=== PATIENT | female | born 1955 | race Caucasian/White ===

== ENCOUNTER 2016-06-15 08:58 | Emergency (ER) | payer OTHER ==
--- NOTE | 2016-06-15 09:48 | ERRECORD ---
[facility] EMERGENCY RECORD HPI RASH (: SHAN) CHIEF COMPLAINT: Patient presents for evaluation of rash, Patient presents for evaluation of present for about six weeks. HISTORIAN: History provided by patient. LOCATION: right groin. QUALITY: Rash described as red. SEVERITY: Maximum severity of symptoms moderate, Currently symptoms are moderate. TIME COURSE: Gradual onset of symptoms. ASSOCIATED WITH: No associated symptoms. EXACERBATED BY: Patient's condition exacerbated by nothing. RELIEVED BY: Patient's condition relieved by nothing. ROS (: SHAN) CONSTITUTIONAL: Negative constitutional review of systems. EYES: Negative eye review of systems. ENT: Negative ears, nose, throat review of systems. CARDIOVASCULAR: Negative cardiovascular review of systems. RESPIRATORY: Negative respiratory review of systems. GI: Negative gastrointestinal review of systems. GENITOURINARY FEMALE: Negative genitourinary review of systems. MUSCULOSKELETAL: Negative musculoskeletal review of systems. SKIN: Negative skin review of systems. NEUROLOGIC: Negative neurologic review of systems. ENDOCRINE: Negative endocrine review of systems. NOTES: All systems reviewed, negative except as described above. PAST MEDICAL HISTORY (: [facility]) MEDICAL HISTORY: Notes: c/o chronic rash to between legs, Flu vaccine up to date, Past medical history includes history of hypertension, Patient is compliant, Flu vaccine up to date, Tetanus not up to date, Past medical history includes gastrointestinal disease, gastroesophageal reflux disease, Past medical history includes history of hyperlipidemia, high cholesterol, currently being treated, Past medical history includes history of hypertension, Past medical history includes history of malignancy, primary site cervical, treated with surgery. FEMALE SURGICAL HISTORY: removal of breast sx, Surgical history of hysterectomy. PSYCHIATRIC HISTORY: Psychiatric history includes, anxiety, bipolar disorder, manic depression. SOCIAL HISTORY: Patient denies alcohol use, Patient currently uses tobacco, smokes cigarettes, Patient smokes 1 pack per day, Patient denies alcohol use, Patient denies drug use, Patient currently uses tobacco, smokes cigarettes, daily, patient has smoked for one year. KNOWN ALLERGIES penicillin G sodium: Reaction: Anaphylaxis streptomycin &a-1R&a+25V*p+0X*[id number]*c202B*c15G*c2P*p-0X&a-25V&a+1R Name: Wildorado Tyree D : 1955 F60 MedRec: [id number] AcctNum: [id number] Prepared: Kailey Jun 15, 2016 09:58 by Interface Page 1 of 3 pMD [facility] EMERGENCY RECORD CURRENT MEDICATIONS (09:16 [facility]) Abilify: TABLET : Strength - 5 mg : ORAL Patient Dose: 1 tab(s) Oral once a day. Paxil: TABLET : Strength - 10 mg : ORAL Patient Dose: 1 tab(s) Oral once a day. Wellbutrin SR: TABLET, EXTENDED RELEASE : Strength - 150 mg : ORAL Patient Dose: 1 tab(s) Oral once a day. Diovan: CAPSULE : Strength - 80 mg : ORAL Patient Dose: 1 tab(s) Oral once a day. Protonix: TABLET, DELAYED RELEASE (ENTERIC COATED) : Strength - 40 mg : ORAL Patient Dose: 1 tab(s) Oral once a day. simvastatin: TABLET : Strength - 40 mg : ORAL Patient Dose: 1 tab(s) Oral once a day. hydrOXYzine HCl: TABLET : Strength - 10 mg : ORAL Patient Dose: unk mg Oral 3 times a day. VITAL SIGNS (09:12 [facility]) VITAL SIGNS: BP: 163/80, Pulse: 83, Resp: 20, Temp: 97.1 (Oral), Pain: 0, O2 sat: 95 on Room Air, Time: 06/15/2016 09:12. PHYSICAL EXAM (09:26 [facility]) CONSTITUTIONAL: Patient afebrile, Pulse normal, Blood pressure normal, Respiratory rate normal, Patient appears non toxic, Patient appears pain free, Patient alert and oriented to person, place and time. HEAD: Head exam included findings of head atraumatic, normocephalic. EYES: Eye exam normal, Eye exam included findings of eyelids normal to inspection, Pupils equally round and reactive to light, Extraocular muscles intact. ENT: ENT exam normal, Pharynx exam normal, Uvula exam normal, Tonsil exam normal. NECK: Neck exam normal, Neck exam included findings of normal range of motion, Trachea midline. RESPIRATORY CHEST: Respiratory and chest exam normal, Chest exam included findings of chest movement symmetrical, Chest expansion equal, Percussion normal. CARDIOVASCULAR: Cardiovascular assessment normal, Cardiovascular exam included findings of heart rate regular rate and rhythm, Heart sounds normal. ABDOMEN FEMALE: Abdominal exam normal, Abdominal exam included findings of abdomen nontender, Bowel sounds normal. BACK: Back exam normal. &a-1R&a+25V*p+0X*[id number]*c202B*c15G*c2P*p-0X&a-25V&a+1R Name: Tyree Garcia : 1955 F60 MedRec: [id number] AcctNum: [id number] Prepared: Kailey Jun 15, 2016 09:58 by Interface Page 2 of 3 pMD [facility] EMERGENCY RECORD UPPER EXTREMITY: Upper extremity exam normal, Upper extremity exam included findings of inspection normal, Range of motion normal. LOWER EXTREMITY: Lower extremity exam normal, Lower extremity exam included findings of inspection normal, Range of motion normal. NEURO: Neuro exam normal. SKIN: Rash present, right groin with erythematous rash; large, diffuse redness, some satellite lesions at edges. PSYCHIATRIC: Psychiatric exam normal, Psychiatric exam included findings of patient oriented to person place and time, Normal affect, Judgment normal, Insight normal. PROBLEM LIST No recorded problems DIAGNOSIS (09:39 SHAN) FINAL: PRIMARY: faina intertrigo. PRESCRIPTION Nizoral oral: TABLET : 200 mg : ORAL : Quantity: 1 Unit: tab(s) Route: ORAL Schedule: once a day Dispense: 14 May substitute. Refills: No Refills POTENTIAL CONTRAINDICATED INTERACTION: simvastatin Override Rationale: Benefits outweigh risks. (09:34 SHAN) NOTES: No Refills. (09:34 SHAN) tolnaftate topical: POWDER (GRAM) : 1 % : TOPICAL : Quantity: 1 Unit: elizabeth Route: TOPICAL Schedule: 4 times a day Dispense: 1 Unit: units May substitute. Refills: No Refills . (09:36 SHAN) NOTES: dispense one bottle or can; refill times 2 No Refills. (09:36 STEFANIE) DISPOSITION PATIENT: Disposition Type: Discharge, Disposition: *Discharge Home. (09:39 SHAN) Patient left the department. (09:52 [facility]) Vences: HAYDEN=Raquel Alcantara=MD Cage Stanley &a-1R&a+25V*p+0X*[id number]*c202B*c15G*c2P*p-0X&a-25V&a+1R Name: Tyree Garcia Chastity : 1955 F60 MedRec: [id number] AcctNum: [id number] Prepared: Kailey Jun 15, 2016 09:58 by Interface Page 3 of 3 pMD MTDD
--- NOTE | 2016-06-15 09:54 | PICIS ---
[facility] EMERGENCY RECORD TRIAGE (SunJun 15, 2016 09:15 IHAC) PATIENT: NAME: Tyree Garcia, AGE: 60, GENDER: female, : Sun1955, TIME OF GREET: SunJun 15, 2016 08:59, PREFERRED LANGUAGE: Frisian, ETHNICITY: Not or , ECODE BILLING MAP: [facility], SSN: [id number], Zip Code: [address], KG WEIGHT: 120.20, PHONE: , , , PERSON ID: [id number], PCP: Julio MAO LUKE. (SunJun 15, 2016 09:15 IHAC) COMPLAINT: RASH. (SunJun 15, 2016 09:15 IHAC) ADMISSION: URGENCY: 4 Non Urgent, ADMISSION SOURCE: Home, TRANSPORT: CAR, BED: ER -05. (SunJun 15, 2016 09:15 IHAC) ASSESSMENT: Assessment: RASH, Symptoms began 5 wks ago. (09:19 IHAC) SIRS SCORING: Heart Rate 55-109 (0), Temp range 96.8-101.1 (0), respiratory rate 12-24 (0). (09:19 IHAC) PROVIDERS: TRIAGE NURSE: Raquel Alcantara. (SunJun 15, 2016 09:15 IHAC) VITAL SIGNS: BP 163/80, Pulse 83, Resp 20, Temp 97.1, (Oral), Pain 0, O2 Sat 95, on Room Air, Time 06/15/2016 09:12. (09:12 IHAC) PREVIOUS VISIT ALLERGIES: penicillin G sodium, streptomycin. (SunJun 15, 2016 09:15 IHAC) penicillin G sodium, streptomycin. (09:19 I[facility]) KNOWN ALLERGIES penicillin G sodium: Reaction: Anaphylaxis streptomycin CURRENT MEDICATIONS (09:16 [facility]) Abilify: TABLET : Strength - 5 mg : ORAL Patient Dose: 1 tab(s) Oral once a day. Paxil: TABLET : Strength - 10 mg : ORAL Patient Dose: 1 tab(s) Oral once a day. Wellbutrin SR: TABLET, EXTENDED RELEASE : Strength - 150 mg : ORAL Patient Dose: 1 tab(s) Oral once a day. Diovan: CAPSULE : Strength - 80 mg : ORAL Patient Dose: 1 tab(s) Oral once a day. Protonix: TABLET, DELAYED RELEASE (ENTERIC COATED) : Strength - 40 mg : ORAL Patient Dose: 1 tab(s) Oral once a day. simvastatin: TABLET : Strength - 40 mg : ORAL Patient Dose: 1 tab(s) Oral once a day. hydrOXYzine HCl: TABLET : Strength - 10 mg : ORAL Patient Dose: unk mg Oral 3 times a day. &a-1R&a+25V*p+0X*f4039U*c202B*c15G*c2P*p-0X&a-25V&a+1R Name: Tyree Garcia : 1955 F60 MedRec: [id number] AcctNum: [id number] Prepared: [facility] Jun 15, 2016 10:04 by Interface Page 1 of 5 pMD [facility] EMERGENCY RECORD VITAL SIGNS (09:12 I[facility]) VITAL SIGNS: BP: 163/80, Pulse: 83, Resp: 20, Temp: 97.1 (Oral), Pain: 0, O2 sat: 95 on Room Air, Time: 06/15/2016 09:12. NURSING ASSESSMENT: SKIN (09:40 IHAC) CONSTITUTIONAL: Complex assessment performed, Patient arrives ambulatory, Gait steady, History obtained from patient, Patient appears comfortable, Patient cooperative, Patient alert, Oriented to person, place and time, Skin warm, Skin dry, Skin normal in color, Mucous membranes pink, Mucous membranes moist, Patient is well-groomed, Patient complains of RASH TO RIGHT SIDE OF LOW ABD.FOLD AND. PAIN: burning pain, constant, REPORTS CHRONIC RASH FOR 5 WKS. SKIN: Inspection findings include redness, to RIGHT RO ABD. AND THIGH. SAFETY: Side rails up, Cart/Stretcher in lowest position, Call light within reach, Hospital ID band on. NURSING PROCEDURE: BEDSIDE TESTING PATIENT IDENTIFIER: Patient actively involved in identification process, Patient's identity verified by patient stating name, Patient's identity verified by patient stating date, Patient's identity verified by hospital ID bracelet. (09:38 IHAC) GLUCOSE: Glucose testing indicated for diabetic patient, Venous blood sample, Result (mg/dl) 91. (09:29 BDON) Notes: GLUCOSE OF 91. (09:38 IHAC) SAFETY: Side rails up, Cart/Stretcher in lowest position, Family at bedside, Call light within reach, Hospital ID band on. (09:38 IHAC) NURSING PROCEDURE: DISCHARGE NOTE (09:47 IHAC) DISCHARGE: Patient discharged to home, ambulating without assistance, driving self, unaccompanied, Summary of Care printed/ provided, Patient requested and was provided an electronic copy of Discharge Instructions, Transition record given to patient, Simple or moderate discharge teaching performed, Prescriptions given and instructions on side effects given, Above person(s) verbalized understanding of discharge instructions and follow-up care, Patient discharged by. BELONGINGS: Belongings and valuables with patient at time of discharge include:, Belongings remain with patient. ORDER DETAILS Order Name: BLOOD GLUCOSE MONITOR, Status: Done, Time: 09:29 06/15/2016, User: BDON, - Ordered for: MD Cage Stanley, - Entered by: MD Cage Stanley - [facility] Jun 15, 2016 09:25, - Quantity: 1. &a-1R&a+25V*p+0X*[id number]*c202B*c15G*c2P*p-0X&a-25V&a+1R Name: Tyree Garcia : 1955 F60 MedRec: [id number] AcctNum: [id number] Prepared: [facility] Jun 15, 2016 10:04 by Interface Page 2 of 5 pMD [facility] EMERGENCY RECORD HPI RASH (:25 SHAN) CHIEF COMPLAINT: Patient presents for evaluation of rash, Patient presents for evaluation of present for about six weeks. HISTORIAN: History provided by patient. LOCATION: right groin. QUALITY: Rash described as red. SEVERITY: Maximum severity of symptoms moderate, Currently symptoms are moderate. TIME COURSE: Gradual onset of symptoms. ASSOCIATED WITH: No associated symptoms. EXACERBATED BY: Patient's condition exacerbated by nothing. RELIEVED BY: Patient's condition relieved by nothing. ROS (09:26 SHAN) CONSTITUTIONAL: Negative constitutional review of systems. EYES: Negative eye review of systems. ENT: Negative ears, nose, throat review of systems. CARDIOVASCULAR: Negative cardiovascular review of systems. RESPIRATORY: Negative respiratory review of systems. GI: Negative gastrointestinal review of systems. GENITOURINARY FEMALE: Negative genitourinary review of systems. MUSCULOSKELETAL: Negative musculoskeletal review of systems. SKIN: Negative skin review of systems. NEUROLOGIC: Negative neurologic review of systems. ENDOCRINE: Negative endocrine review of systems. NOTES: All systems reviewed, negative except as described above. PAST MEDICAL HISTORY (09:19 [facility]) MEDICAL HISTORY: Notes: c/o chronic rash to between legs, Flu vaccine up to date, Past medical history includes history of hypertension, Patient is compliant, Flu vaccine up to date, Tetanus not up to date, Past medical history includes gastrointestinal disease, gastroesophageal reflux disease, Past medical history includes history of hyperlipidemia, high cholesterol, currently being treated, Past medical history includes history of hypertension, Past medical history includes history of malignancy, primary site cervical, treated with surgery. FEMALE SURGICAL HISTORY: removal of breast sx, Surgical history of hysterectomy. PSYCHIATRIC HISTORY: Psychiatric history includes, anxiety, bipolar disorder, manic depression. SOCIAL HISTORY: Patient denies alcohol use, Patient currently uses tobacco, smokes cigarettes, Patient smokes 1 pack per day, Patient denies alcohol use, Patient denies drug use, Patient currently uses tobacco, smokes cigarettes, daily, patient has smoked for one year. PHYSICAL EXAM (09:26 [facility]) CONSTITUTIONAL: Patient afebrile, Pulse normal, Blood pressure normal, Respiratory rate normal, Patient appears non toxic, Patient &a-1R&a+25V*p+0X*[id number]*c202B*c15G*c2P*p-0X&a-25V&a+1R Name: Tyree Garcia : 1955 F60 MedRec: [id number] AcctNum: [id number] Prepared: Kailey Jun 15, 2016 10:04 by Interface Page 3 of 5 pMD [facility] EMERGENCY RECORD appears pain free, Patient alert and oriented to person, place and time. HEAD: Head exam included findings of head atraumatic, normocephalic. EYES: Eye exam normal, Eye exam included findings of eyelids normal to inspection, Pupils equally round and reactive to light, Extraocular muscles intact. ENT: ENT exam normal, Pharynx exam normal, Uvula exam normal, Tonsil exam normal. NECK: Neck exam normal, Neck exam included findings of normal range of motion, Trachea midline. RESPIRATORY CHEST: Respiratory and chest exam normal, Chest exam included findings of chest movement symmetrical, Chest expansion equal, Percussion normal. CARDIOVASCULAR: Cardiovascular assessment normal, Cardiovascular exam included findings of heart rate regular rate and rhythm, Heart sounds normal. ABDOMEN FEMALE: Abdominal exam normal, Abdominal exam included findings of abdomen nontender, Bowel sounds normal. BACK: Back exam normal. UPPER EXTREMITY: Upper extremity exam normal, Upper extremity exam included findings of inspection normal, Range of motion normal. LOWER EXTREMITY: Lower extremity exam normal, Lower extremity exam included findings of inspection normal, Range of motion normal. NEURO: Neuro exam normal. SKIN: Rash present, right groin with erythematous rash; large, diffuse redness, some satellite lesions at edges. PSYCHIATRIC: Psychiatric exam normal, Psychiatric exam included findings of patient oriented to person place and time, Normal affect, Judgment normal, Insight normal. EVENTS TRANSFER: Triage to Emergency Emergency Room -05. (SunJun 15, 2016 09:15 IHAC) Removed from Emergency Emergency Room -05. (09:52 IHAC) PROBLEM LIST No recorded problems DIAGNOSIS (09:39 SHAN) FINAL: PRIMARY: faina intertrigo. DISPOSITION PATIENT: Disposition Type: Discharge, Disposition: *Discharge Home. (09:39 SHAN) Patient left the department. (09:52 I[facility]) INSTRUCTION (09:39 SHAN) DISCHARGE: DERMATITIS, NON-SPECIFIC. FOLLOWUP: Julio AMO LUKE, Internal Medicine, [address] &a-1R&a+25V*p+0X*i1097S*c202B*c15G*c2P*p-0X&a-25V&a+1R Name: Tyree Garcia : 1955 F60 MedRec: [id number] AcctNum: [id number] Prepared: SunJun 15, 2016 10:04 by Interface Page 4 of 5 pMD [facility] EMERGENCY RECORD [facility] [id number], . SPECIAL: 1. this looks most like a heat, moisture, and rubbing caused yeast infection 2. use the antifungal pill as directed for 10 days; while on it don't take the cholesterol pills. Use the powder four times a day. 3. followup with regular provider in a week or two. PRESCRIPTION Nizoral oral: TABLET : 200 mg : ORAL : Quantity: 1 Unit: tab(s) Route: ORAL Schedule: once a day Dispense: 14 May substitute. Refills: No Refills POTENTIAL CONTRAINDICATED INTERACTION: simvastatin Override Rationale: Benefits outweigh risks. (09:34 SHAN) NOTES: No Refills. (09:34 SHAN) tolnaftate topical: POWDER (GRAM) : 1 % : TOPICAL : Quantity: 1 Unit: elizabeth Route: TOPICAL Schedule: 4 times a day Dispense: 1 Unit: units May substitute. Refills: No Refills . (09:36 SHAN) NOTES: dispense one bottle or can; refill times 2 No Refills. (09:36 SHAN) IMAGING *DISCHARGE INSTRUCTIONS RECEIPT: Image captured from scanner. (09:50 [facility]) *SUPPLY CHARGE SHEET: Image captured from scanner. (09:51 [facility]) ADMIN DIGITAL SIGNATURE: MD Cage Stanley. (09:40 SHAN) Raquel Alcantara. (09:49 [facility]) RESULTS (09:39 [facility]) LABORATORY: Accuchek Collection DT: SunJun 15, 2016 09:34, Accuchek 91 mg/dL, Range (70-110). Vences: JED=SURI Mustafa, Aline IHAC=Raquel Alcantara=MD Cage Stanley &a-1R&a+25V*p+0X*f1796D*c202B*c15G*c2P*p-0X&a-25V&a+1R Name: Tyree Garcia : 1955 F60 MedRec: [id number] AcctNum: [id number] Prepared: SunJun 15, 2016 10:04 by Interface Page 5 of 5 pMD MTDD
== END 2016-06-15 09:47 | disposition home or self-care (01) ==
LOC: NAV ERS 08:58
DX: B37.2 Candidiasis of skin and nail (principal); I10 Essential (primary) hypertension; K21.9 Gastro-esophageal reflux disease without esophagitis; E78.5 Hyperlipidemia, unspecified; F31.9 Bipolar disorder, unspecified; F41.9 Anxiety disorder, unspecified; F17.210 Nicotine dependence, cigarettes, uncomplicated
CPT/HCPCS: 36416; 99283

== ENCOUNTER 2016-08-21 09:44 | Outpatient (CLI) | payer OTHER ==
[2016-08-21 13:30] LABS: Bilirubin Negative (Negative); Blood, Urine Trace (Negative); Glucose, Urine (Dipstick) Negative (Negative); Ketone, Urine Negative (Negative); Nitrite Negative (Negative); Protein, Urine (Dipstick) Negative (Neg-Trace); Urobilinogen 0.2 mg/dL (0.2-1.0)
[2016-08-21 13:51] LABS: Bacteria/HPF 1+ HPF (None Seen); RBC/HPF 0-3 HPF (0-3)
== END 2016-08-21 09:45 | disposition home or self-care (01) ==
LOC: NAVSJIPCSP 09:44
PROVIDERS: ATTEND Internal Medicine
DX: N39.0 Urinary tract infection, site not specified (principal)
CPT/HCPCS: 81003; 81015; 87086

== ENCOUNTER 2016-09-07 14:02 | Emergency (ER) | payer OTHER ==
[~2016-09-07 14:02] MED LIST: Iopamidol 370 76% 100 ML VIAL ONE
--- NOTE | 2016-09-07 14:45 | RAD ---
CHEST 1 VIEW: Date: 09/07/16 HISTORY: Chest pain. FINDINGS: The cardiac silhouette is magnified by projection. Pulmonary vasculature is unremarkable. Mediastinu m is midline. There is no confluent air space consolidation or evidence of pneumothorax. Cardiac mon itor leads overlie the chest. IMPRESSION: No active cardiopulmonary abnormalities are demonstrated. POS: [facility]
[2016-09-07] MEDS ORDERED: Ondansetron HCl/PF 4 MG/2 ML Vial ONE (14:47)
[2016-09-07] MEDS ORDERED: Pantoprazole 40 MG VIAL ONE (14:47)
[2016-09-07 14:48] LABS: #Basophils 0.1 thou/uL (0.0-0.2); #Eosinphils 0.2 thou/uL (0.0-0.7); #Monocytes 0.6 thou/uL (0.11-0.59); #Neutrophils 5.5 thou/uL (1.40-6.50); %Basophils 0.8 % (0.0-1.0); %Eosinophils 1.9 % (0.0-10.0); %Lymphocytes 31.5 % (21.0-51.0); %Monocytes 6.8 % (0.0-10.0); %Neutrophils 59.1 % (42.0-75.0); Hemoglobin 14.4 g/dL (12.0-16.0); Mean Corpuscular HGB CONC 34.1 g/dL (32.0-36.0); Mean Corpuscular Hemoglobin 30.8 pg (27.0-31.0); Mean Corpuscular Volume 90.1 fl (81.0-99.0); Platelet Count 265 thou/uL (130-400); RBC Distribution Width 12.6 % (11.5-14.5); Red Blood Cell (RBC) Count 4.69 mill/uL (4.20-5.40); White Blood Cell (WBC) Count 9.4 thou/uL (4.8-10.8)
[2016-09-07 14:57] LABS: ALT (SGPT) 18 U/L (0-55); AST (SGOT) 20 U/L (5-34); Albumin 3.7 g/dL (3.5-5.0); Alkaline Phosphatase 75 U/L (40-150); Anion Gap 14 mmol/L (10-20); BUN (Urea Nitrogen) 14 mg/dL (9.8-20.1); Bilirubin, Total 0.2 mg/dL (0.2-1.2); Calc. Creatinine Clearance 0 mL/min (70-130); Calcium 8.5 mg/dL (7.8-10.44); Carbon Dioxide 23 mmol/L (22-29); Chloride 107 mmol/L (98-107); Estimated GFR-MDRD 67; Globulin 2.5 g/dL (2.4-3.5); Glucose 91 mg/dL (70-105); Lipase 20 U/L (8-78); Protein, Total 6.2 g/dL (6.0-8.3); Sodium 140 mmol/L (136-145); Troponin I Less than 0.010 ng/mL (< 0.028)
[2016-09-07] MEDS ORDERED: Ketorolac Tromethamine 30 MG/ML VIAL ONE (15:01)
--- NOTE | 2016-09-07 16:07 | CT ---
CT ARTERIOGRAM CHEST WITH IV CONTRAST AND 3D MIP IMAGING 09/07/16 HISTORY: Chest pain. FINDINGS: There is good contrast opacification of the pulmonary arteries and thoracic aorta with normal branch ing of the great vessels. Small amount of arterial calcifications apparent. There is a small amount of left pleural fluid with mild atelectasis at the left base. Calcified gran ulomata and mediastinal lymph nodes are consistent with healed granulomatous disease. No pneumothora x or mediastinal adenopathy is evident. There is a small hiatal hernia. IMPRESSION: 1. No CT evidence of pulmonary embolus. 2. Small left pleural effusion. Cause is not apparent. 3. Small hiatal hernia. POS: [facility]
== END 2016-09-07 16:25 | disposition home or self-care (01) ==
LOC: NAV ERS 14:02
DX: R09.1 Pleurisy (principal); I10 Essential (primary) hypertension; K21.9 Gastro-esophageal reflux disease without esophagitis; E78.5 Hyperlipidemia, unspecified; E78.00 Pure hypercholesterolemia, unspecified; F31.9 Bipolar disorder, unspecified; F41.9 Anxiety disorder, unspecified; F17.210 Nicotine dependence, cigarettes, uncomplicated; Z79.899 Other long term (current) drug therapy
CPT/HCPCS: 36415; 71010; 71275; 80053; 82553; 83690; 83880; 84484; 85025; 85379; 93005; 96374; 96375; C9113; J1885; J2405

== ENCOUNTER 2016-10-17 22:51 | Outpatient (CLI) | payer OTHER | END 2016-10-17 22:52 | disposition home or self-care (01) | LOC: NAVSJIPCSP 22:51 | PROVIDERS: ATTEND Internal Medicine | DX: K21.9 Gastro-esophageal reflux disease without esophagitis (principal) | CPT/HCPCS: 82274 ==

== ENCOUNTER 2016-11-04 04:51 | Emergency (ER) | payer OTHER ==
[2016-11-04] MEDS ORDERED: Azithromycin 250 MG TAB ONE (05:08)
== END 2016-11-04 05:13 | disposition home or self-care (01) ==
LOC: NAV ERS 04:51
DX: J02.0 Streptococcal pharyngitis (principal); I10 Essential (primary) hypertension; K21.9 Gastro-esophageal reflux disease without esophagitis; E78.5 Hyperlipidemia, unspecified; F41.9 Anxiety disorder, unspecified; F31.9 Bipolar disorder, unspecified; F17.210 Nicotine dependence, cigarettes, uncomplicated; Z85.41 Personal history of malignant neoplasm of cervix uteri
CPT/HCPCS: 99283

== ENCOUNTER 2017-01-16 15:10 | Outpatient (CLI) | payer OTHER ==
[2017-01-17 18:24] LABS: Syphilis Antibody Non-Reactive (NonReactive); Syphilis Antibody Index 0.04 S/CO (<1.00 Non-Reactive)
[2017-01-17 18:33] LABS: HIV (1/2) Antibody/Antigen Non-Reactive (NonReactive); Hep C IgG Ab Non-Reactive (NonReactive); Hep C Index 0.08 S/CO (0-0.79)
== END 2017-01-16 15:11 | disposition home or self-care (01) ==
LOC: NAV LAB 15:10
DX: Z20.2 Contact with and (suspected) exposure to infections with a predominantly sexual mode of transmission (principal)
CPT/HCPCS: 86780; 86803; 87389

== ENCOUNTER 2017-01-17 09:23 | Outpatient (CLI) | payer OTHER ==
[2017-01-18 22:41] LABS: Chlamydia by PCR Inconclusive (NotDetected); GC by PCR Inconclusive (NotDetected)
== END 2017-01-17 09:24 | disposition home or self-care (01) ==
LOC: NAVSJIPCSP 09:23
DX: N89.8 Other specified noninflammatory disorders of vagina (principal)
CPT/HCPCS: 36415; 87480; 87491; 87510; 87591; 87660

== ENCOUNTER 2017-01-22 10:51 | Outpatient (CLI) | payer OTHER ==
[2017-01-23 23:39] LABS: Chlamydia by PCR Not Detected (NotDetected); GC by PCR Not Detected (NotDetected)
== END 2017-01-22 10:52 | disposition home or self-care (01) ==
LOC: NAVSJIPCSP 10:51
DX: Z20.2 Contact with and (suspected) exposure to infections with a predominantly sexual mode of transmission (principal)
CPT/HCPCS: 87491; 87591

== ENCOUNTER 2017-02-15 13:04 | Outpatient (CLI) | payer OTHER ==
[2017-02-15 15:17] LABS: #Basophils 0.1 thou/uL (0.0-0.2); #Eosinphils 0.2 thou/uL (0.0-0.7); #Monocytes 0.5 thou/uL (0.11-0.59); #Neutrophils 4.2 thou/uL (1.40-6.50); %Eosinophils 2.7 % (0.0-10.0); %Lymphocytes 37.4 % (21.0-51.0); %Monocytes 6.1 % (0.0-10.0); %Neutrophils 52.8 % (42.0-75.0); Hemoglobin 13.9 g/dL (12.0-16.0); Mean Corpuscular HGB CONC 33.6 g/dL (32.0-36.0); Mean Corpuscular Hemoglobin 29.1 pg (27.0-31.0); Mean Corpuscular Volume 86.8 fl (81.0-99.0); Mean Platelet Volume 8.2 fL (7.4-10.4); Platelet Count 271 thou/uL (130-400); RBC Distribution Width 12.4 % (11.5-14.5); Red Blood Cell (RBC) Count 4.76 mill/uL (4.20-5.40); White Blood Cell (WBC) Count 7.9 thou/uL (4.8-10.8)
[2017-02-15 15:29] LABS: ALT (SGPT) 16 U/L (8-55); AST (SGOT) 19 U/L (5-34); Albumin 4.2 g/dL (3.5-5.0); Alkaline Phosphatase 80 U/L (40-150); Anion Gap 13 mmol/L (10-20); BUN (Urea Nitrogen) 19 mg/dL (9.8-20.1); Bilirubin, Total 0.3 mg/dL (0.2-1.2); CRP (Inflammatory) 0.54 mg/dL (= or < 0.5); Calc. Creatinine Clearance 0 mL/min (70-130); Calcium 9.3 mg/dL (7.8-10.44); Carbon Dioxide 28 mmol/L (22-29); Chloride 104 mmol/L (98-107); Cholesterol 159 mg/dl (< 200 Desired); Estimated GFR-MDRD 57; Globulin 2.4 g/dL (2.4-3.5); Glucose 75 mg/dL (70-105); HDL Cholesterol 40 mg/dL (>60 Neg Risk); LDL Cholesterol, Calculated 90 mg/dL; Potassium 4.4 mmol/L (3.5-5.1); Protein, Total 6.6 g/dL (6.0-8.3); Sodium 141 mmol/L (136-145); Triglycerides 146 mg/dL (Less than 150)
== END 2017-02-15 13:05 | disposition home or self-care (01) ==
LOC: NAVSJIPCSP 13:04
PROVIDERS: ATTEND Internal Medicine
DX: E78.5 Hyperlipidemia, unspecified (principal); M79.1 Myalgia; I10 Essential (primary) hypertension
CPT/HCPCS: 36415; 80053; 80061; 85025; 85652; 86140

== ENCOUNTER 2017-06-29 08:04 | Outpatient (CLI) | payer OTHER ==
--- NOTE | 2017-06-29 12:09 | CT ---
CT OF THE ABDOMEN AND PELVIS WITH CONTRAST: COMPARISON: CTA of the chest 09/07/16. HISTORY: Right lower quadrant abdominal pain. TECHNIQUE: Multiple contiguous axial images were obtained in a CT of the abdomen and pelvis with contrast. P.o. contrast was administered. Coronal reformats were performed. FINDINGS: There are lobulated cysts in the liver measuring up to 2.4 cm in size. The gallbladder, kidneys, adr enal glands, and pancreas are unremarkable. Calcifications in the spleen are from prior granulomatou s disease. No free air, free fluid, or stranding changes are seen in the abdomen or pelvis. The large and small bowel are unremarkable. The appendix is not definitely seen, but there are no se condary signs of acute appendicitis in the right lower quadrant of the abdomen. The patient is statu s post hysterectomy but appears to still contain her ovaries in the adnexal regions. No abdominal or pelvic lymphadenopathy is seen. A calcified granuloma is seen in the right lung base. There is stable peripheral nodularity measurin g 5-6 mm in size in the left lower lobe. The abdominal wall soft tissues are unremarkable. IMPRESSION: 1. No evidence of acute intraabdominal/pelvic abnormality. 2. Hepatic cysts. POS: [facility]
== END 2017-06-29 08:05 | disposition home or self-care (01) ==
LOC: NAV CT 08:04
PROVIDERS: ATTEND Internal Medicine
DX: R10.31 Right lower quadrant pain (principal); K76.89 Other specified diseases of liver
CPT/HCPCS: 74177

== ENCOUNTER 2017-07-26 08:20 | Outpatient (CLI) | payer OTHER ==
--- NOTE | 2017-07-26 09:38 | CT ---
NONCONTRAST ENHANCED CT IMAGES LUMBAR SPINE: HISTORY: Back pain radiating to right leg. FINDINGS: Noncontrast-enhanced CT images of the lumbar spine obtained. Mild atherosclerotic calcification is seen in the abdominal aorta. Bilateral SI joint vacuum changes seen. T12-L1: Unremarkable. L1-2: There is some mild disk space height loss. No significant degree of disk space vacuum disk ch anges or herniation seen. L2-3: No significant degree of central stenosis or neural foraminal narrowing is seen. L3-4: There are some small anterior osteophytes at the L3-4 level. There is bilateral facet hypertr ophy seen. There may be a moderate degree of central spinal stenosis. The central canal is difficul t to evaluate due to the patient's large body habitus. If there is concern for pathology, correlate with MRI. L4-5: There appear to be congenitally short pedicles with bilateral facet hypertrophy. There may be a moderate to severe degree of central L4-5 spinal stenosis. Again, correlate with MRI. Additional disk protrusion or herniations could not be excluded due to the less than optimum scan because of th e patient's size. L5-S1: Bilateral facet hypertrophy is seen. The L5-S1 central canal is difficult to evaluate due to patient's body habitus. No evidence of osseous encroachment is seen. L5-S1 central protrusion coty ot be excluded. The neural foramen bilaterally are patent. IMPRESSION: Limited exam of the central canal due to the patient's body habitus at L3-4, L4-5, and L5-S1. POS: [facility]
== END 2017-07-26 08:21 | disposition home or self-care (01) ==
LOC: NAV CT 08:20
PROVIDERS: ATTEND Internal Medicine
DX: M54.41 Lumbago with sciatica, right side (principal)
CPT/HCPCS: 72131

== ENCOUNTER 2017-08-15 18:22 | Emergency (ER) | payer OTHER ==
[2017-08-15] MEDS ORDERED: Ketorolac Tromethamine 30 MG/ML VIAL ONE (18:57)
[2017-08-15] MEDS ORDERED: Ibuprofen 200 MG TAB ONE (18:57)
[2017-08-15] MEDS ORDERED: Sodium Chloride 0.9% 1,000 ML ONE (18:57)
[2017-08-15] MEDS ORDERED: Dexamethasone 20 MG/5 ML VIAL ONE (18:57)
[2017-08-15 19:03] LABS: Hemoglobin 13.9 g/dL (12.0-16.0); Mean Corpuscular HGB CONC 32.4 g/dL (32.0-36.0); Mean Corpuscular Hemoglobin 28.1 pg (27.0-31.0); Mean Corpuscular Volume 86.8 fl (81.0-99.0); Mean Platelet Volume 9.9 fL (7.4-10.4); Platelet Count 289 thou/uL (130-400); RBC Distribution Width 12.3 % (11.5-14.5); Red Blood Cell (RBC) Count 4.95 mill/uL (4.20-5.40); White Blood Cell (WBC) Count 15.7 thou/uL (4.8-10.8)
[2017-08-15] MEDS ORDERED: Ondansetron HCl/PF 4 MG/2 ML Vial ONE (19:06)
[2017-08-15 19:07] LABS: Band 4 % (5-11); Eosinophils 3 % (0-10); Lymphocytes 12 % (21-51); MDiff Complete? YES; Monocytes 9 % (0-10); Neutrophil 72 % (42-75); PLT Morphology Comment Appears Adequate; RBC Morphology Normal
[2017-08-15] MEDS ORDERED: cefTRIAXone\\ROCEPHIN 1 GM VIAL ONE (20:31)
[2017-08-15 20:34] LABS: Anion Gap 13 mmol/L (10-20); BUN (Urea Nitrogen) 7 mg/dL (9.8-20.1); Calc. Creatinine Clearance 0 mL/min (70-130); Calcium 9.1 mg/dL (7.8-10.44); Carbon Dioxide 24 mmol/L (23-31); Chloride 106 mmol/L (98-107); Estimated GFR-MDRD 72; Glucose 85 mg/dL (80-115); Potassium 4.3 mmol/L (3.5-5.1); Sodium 139 mmol/L (136-145)
--- NOTE | 2017-08-15 22:45 | CT ---
CT NECK SOFT TISSUE WITH CONTRAST 08/15/17 HISTORY: Fever. COMPARISON: None. FINDINGS: Lung apices are clear. Thyroid is unremarkable. Evaluation of the oropharynx is limited due to streak artifact from dental amalgam. Mild tonsillar hypertrophy. No definite tonsillar abscess. There appears to be some phlegmonous hernandez e within the right palatine tonsil. Small reactive cervical lymph nodes. Mild degenerative changes of the lower cervical spine. IMPRESSION: Mild enlargement of the palatine tonsils with phlegmonous change in the right palatine tonsil without definite abscess, although patient is a risk for abscess due to the phlegmonous change. POS: [facility]
== END 2017-08-15 21:44 | disposition home or self-care (01) ==
LOC: NAV ERS 18:22
DX: J02.9 Acute pharyngitis, unspecified (principal); D72.829 Elevated white blood cell count, unspecified; I10 Essential (primary) hypertension; K21.9 Gastro-esophageal reflux disease without esophagitis; E78.5 Hyperlipidemia, unspecified; F41.9 Anxiety disorder, unspecified; F31.9 Bipolar disorder, unspecified; F17.210 Nicotine dependence, cigarettes, uncomplicated; Z79.899 Other long term (current) drug therapy
CPT/HCPCS: 70491; 80048; 85025; 87081; 87430; 96361; 96374; 96375; J0696; J1100; J1885; J2405; J7050

== ENCOUNTER 2018-02-13 09:17 | Outpatient (CLI) | payer OTHER ==
--- NOTE | 2018-02-13 11:17 | ULT ---
LIMITED ULTRASOUND OF THE URINARY BLADDER: History: Stress incontinence. Technique: Multiplanar grayscale and color doppler images were obtained in a limited ultrasound of th e urinary bladder and pelvis. FINDINGS: No focal abnormality of the urinary bladder is seen. Pre void bladder volume is 20 ml. Post void blad yung volume is 8 ml. Both ovaries are seen and demonstrate normal internal flow. No free fluid is seen in the pelvis. The uterus has been removed. IMPRESSION: No significant bladder or ovarian abnormality. POS: [facility]
--- NOTE | 2018-02-13 12:13 | ULT ---
BILATERAL LOWER EXTREMITY VENOUS DUPLEX ULTRASOUND INCLUDING COLOR AND SPECTRAL DOPPLER IMAGING: HISTORY: A 62-year-old female with right lower extremity swelling and edema for two days and left lower extrem ity injury with contusion. TECHNIQUE: Exam performed from groin go ankle, including visualized greater saphenous, common femoral, superfici al femoral, profunda femoral, popliteal, trifurcation, and posterior tibial vein regions. FINDINGS: Phasic flow noted at all levels with normal compressibility and normal augmentation. No intraluminal thrombus. IMPRESSION: No evidence for deep venous thrombosis. POS: [facility]
== END 2018-02-13 09:18 | disposition home or self-care (01) ==
LOC: NAV ULT 09:17
PROVIDERS: ATTEND Internal Medicine
DX: S80.12XA Contusion of left lower leg, initial encounter (principal); N39.46 Mixed incontinence
CPT/HCPCS: 76856; 93970

== ENCOUNTER 2019-03-31 09:26 | Outpatient (CLI) | payer OTHER ==
--- NOTE | 2019-03-31 11:32 | RAD ---
2 VIEW LEFT LEG: Date: 03/31/19 INDICATION: Fall, injury. FINDINGS: No fracture or dislocation. No radiopaque foreign bodies. 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 Calcaneal enthesophytes are present. IMPRESSION: No acute osseous abnormality of the left leg. POS: [facility]
== END 2019-03-31 09:27 | disposition home or self-care (01) ==
LOC: NAV RAD 09:26
PROVIDERS: ATTEND Internal Medicine
DX: S80.12XA Contusion of left lower leg, initial encounter (principal)

== ENCOUNTER 2019-06-18 09:02 | Outpatient (CLI) | payer OTHER ==
--- NOTE | 2019-06-18 09:30 | RAD ---
Exam:3 views left wrist HISTORY: Pain. COMPARISON: None FINDINGS: Intercarpal and radiocarpal joint spaces are preserved. No fracture, cortical irregularity or periosteal reaction. Ulnar styloid and radial styloid are intact. IMPRESSION: Unremarkable 3 views left wrist
== END 2019-06-18 09:03 | disposition home or self-care (01) ==
LOC: NAV RAD 09:02
PROVIDERS: ATTEND Nurse Practitioner Adult Health
DX: M25.532 Pain in left wrist (principal)

== ENCOUNTER 2019-06-21 11:26 | Emergency (ER) | payer OTHER | END 2019-06-21 12:07 | disposition home or self-care (01) | LOC: NAV ERS 11:26 | DX: J06.9 Acute upper respiratory infection, unspecified (principal); I10 Essential (primary) hypertension; K21.9 Gastro-esophageal reflux disease without esophagitis; E78.5 Hyperlipidemia, unspecified; E78.00 Pure hypercholesterolemia, unspecified; F31.9 Bipolar disorder, unspecified; F41.9 Anxiety disorder, unspecified; F17.210 Nicotine dependence, cigarettes, uncomplicated; Z85.41 Personal history of malignant neoplasm of cervix uteri; Z79.899 Other long term (current) drug therapy | CPT/HCPCS: 99283 ==

== ENCOUNTER 2019-07-27 11:37 | Emergency (ER) | payer OTHER | END 2019-07-27 12:24 | disposition home or self-care (01) | LOC: NAV ERS 11:37 | DX: K04.7 Periapical abscess without sinus (principal); K02.9 Dental caries, unspecified; F17.210 Nicotine dependence, cigarettes, uncomplicated; I10 Essential (primary) hypertension; K21.9 Gastro-esophageal reflux disease without esophagitis; E78.5 Hyperlipidemia, unspecified; F41.9 Anxiety disorder, unspecified; F31.9 Bipolar disorder, unspecified; E78.00 Pure hypercholesterolemia, unspecified; Z79.899 Other long term (current) drug therapy | CPT/HCPCS: 99282 ==

== ENCOUNTER 2019-09-23 13:55 | Emergency (ER) | payer OTHER ==
[2019-09-23 14:33] LABS: #Basophils 0.1 thou/uL (0.0-0.2); #Eosinphils 0.2 thou/uL (0.0-0.7); #Monocytes 0.5 thou/uL (0.11-0.59); #Neutrophils 6.7 thou/uL (1.40-6.50); %Basophils 0.8 % (0.0-1.0); %Lymphocytes 28.9 % (21.0-51.0); %Monocytes 4.3 % (0.0-10.0); Hemoglobin 13.9 g/dL (12.0-16.0); Mean Corpuscular HGB CONC 33.6 g/dL (32.0-36.0); Mean Corpuscular Hemoglobin 30.2 pg (27.0-31.0); Mean Corpuscular Volume 89.7 fL (78.0-98.0); Mean Platelet Volume 8.8 fL (7.4-10.4); Platelet Count 331 thou/uL (130-400); RBC Distribution Width 12.5 % (11.5-14.5); White Blood Cell (WBC) Count 10.4 thou/uL (4.8-10.8)
[2019-09-23 14:53] LABS: ALT (SGPT) 20 U/L (8-55); AST (SGOT) 15 U/L (5-34); Albumin 4.4 g/dL (3.4-4.8); Alkaline Phosphatase 80 U/L (40-110); Anion Gap 15 mmol/L (10-20); BUN (Urea Nitrogen) 21 mg/dL (9.8-20.1); Bilirubin, Total 0.2 mg/dL (0.2-1.2); Calc. Creatinine Clearance 0 mL/min (70-130); Calcium 9.7 mg/dL (7.8-10.44); Carbon Dioxide 28 mmol/L (23-31); Chloride 99 mmol/L (98-107); Estimated GFR-MDRD 51; Globulin 2.9 g/dL (2.4-3.5); Glucose 118 mg/dL (80-115); Potassium 3.9 mmol/L (3.5-5.1); Protein, Total 7.3 g/dL (6.0-8.3); Sodium 138 mmol/L (136-145)
[2019-09-23] MEDS ORDERED: Sodium Chloride 0.9% 1,000 ML ONE (14:53)
[2019-09-23 15:01] LABS: Bilirubin Negative (Negative); Blood, Urine Trace (Negative); Clarity SL HAZY (Clear); Glucose, Urine (Dipstick) Negative (Negative); Leukocyte Negative (Negative); Nitrite Negative (Negative); Protein, Urine (Dipstick) Negative (Neg-Trace); Urobilinogen 0.2 mg/dL (Less than 2)
[2019-09-23 15:11] LABS: Bacteria/HPF 1+ HPF (None Seen); RBC/HPF 0-3 HPF (0-3); Squamous Epithelial 0-3 HPF (0-3); WBC/HPF 0-3 HPF (0-3)
== END 2019-09-23 15:50 | disposition home or self-care (01) ==
LOC: NAV ERS 13:55
DX: E86.9 Volume depletion, unspecified (principal); I10 Essential (primary) hypertension; K21.9 Gastro-esophageal reflux disease without esophagitis; E78.5 Hyperlipidemia, unspecified; E78.00 Pure hypercholesterolemia, unspecified; F31.9 Bipolar disorder, unspecified; F41.9 Anxiety disorder, unspecified; F17.210 Nicotine dependence, cigarettes, uncomplicated; Z79.899 Other long term (current) drug therapy
CPT/HCPCS: 81015; 83605; 84443; 84484; 93005; 96360; J7050

== ENCOUNTER 2019-10-10 08:35 | Emergency (ER) | payer OTHER ==
[2019-10-10 09:38] LABS: #Basophils 0.1 thou/uL (0.0-0.2); #Eosinphils 0.2 thou/uL (0.0-0.7); #Lymphocytes 2.5 thou/uL (1.20-3.40); #Monocytes 0.3 thou/uL (0.11-0.59); #Neutrophils 6.2 thou/uL (1.40-6.50); %Basophils 0.7 % (0.0-1.0); %Eosinophils 1.8 % (0.0-10.0); %Lymphocytes 26.9 % (21.0-51.0); %Monocytes 3.6 % (0.0-10.0); Hemoglobin 13.6 g/dL (12.0-16.0); Mean Corpuscular HGB CONC 33.2 g/dL (32.0-36.0); Mean Corpuscular Hemoglobin 30.2 pg (27.0-31.0); Mean Corpuscular Volume 90.9 fL (78.0-98.0); Mean Platelet Volume 8.5 fL (7.4-10.4); Platelet Count 298 thou/uL (130-400); RBC Distribution Width 12.9 % (11.5-14.5); White Blood Cell (WBC) Count 9.3 thou/uL (4.8-10.8)
[2019-10-10 09:40] LABS: Bilirubin Negative (Negative); Blood, Urine Negative (Negative); Clarity Clear (Clear); Glucose, Urine (Dipstick) Negative (Negative); Leukocyte Negative (Negative); Nitrite Negative (Negative); Protein, Urine (Dipstick) Negative (Neg-Trace); Urobilinogen 0.2 mg/dL (Less than 2)
[2019-10-10 09:54] LABS: ALT (SGPT) 19 U/L (8-55); AST (SGOT) 17 U/L (5-34); Albumin 4.2 g/dL (3.4-4.8); Alkaline Phosphatase 83 U/L (40-110); Anion Gap 14 mmol/L (10-20); BUN (Urea Nitrogen) 21 mg/dL (9.8-20.1); Bilirubin, Total 0.2 mg/dL (0.2-1.2); Calc. Creatinine Clearance 0 mL/min (70-130); Calcium 9.6 mg/dL (7.8-10.44); Carbon Dioxide 27 mmol/L (23-31); Chloride 105 mmol/L (98-107); Estimated GFR-MDRD 49; Globulin 2.8 g/dL (2.4-3.5); Glucose 103 mg/dL (80-115); Potassium 4.3 mmol/L (3.5-5.1); Sodium 142 mmol/L (136-145)
== END 2019-10-10 10:17 | disposition home or self-care (01) ==
LOC: NAV ERS 08:35
DX: R53.1 Weakness (principal); I10 Essential (primary) hypertension; E78.5 Hyperlipidemia, unspecified; E78.00 Pure hypercholesterolemia, unspecified; K21.9 Gastro-esophageal reflux disease without esophagitis; F31.9 Bipolar disorder, unspecified; F41.9 Anxiety disorder, unspecified; F17.210 Nicotine dependence, cigarettes, uncomplicated; Z79.899 Other long term (current) drug therapy
CPT/HCPCS: 80053; 81003; 84484; 85025; 93005

== ENCOUNTER 2020-02-18 12:38 | Outpatient (CLI) | payer OTHER ==
[2020-02-18 14:17] LABS: Bilirubin Negative (Negative); Blood, Urine Trace (Negative); Clarity Clear (Clear); Glucose, Urine (Dipstick) Negative (Negative); Ketone, Urine Negative (Negative); Leukocyte Negative (Negative); Nitrite Negative (Negative); Protein, Urine (Dipstick) Negative (Neg-Trace); Specific Gravity, Urine 1.015 (1.005-1.030); Urobilinogen 0.2 mg/dL (Less than 2); pH, Urine 5.5 (5.0-9.0)
[2020-02-18 14:23] LABS: #Basophils 0.1 thou/uL (0.0-0.2); #Eosinphils 0.1 thou/uL (0.0-0.7); #Lymphocytes 2.7 thou/uL (1.20-3.40); #Monocytes 0.4 thou/uL (0.11-0.59); #Neutrophils 5.1 thou/uL (1.40-6.50); %Basophils 0.8 % (0.0-1.0); %Eosinophils 1.8 % (0.0-10.0); %Lymphocytes 32.1 % (21.0-51.0); %Monocytes 4.6 % (0.0-10.0); %Neutrophils 60.8 % (42.0-75.0); ALT (SGPT) 21 U/L (8-55); AST (SGOT) 20 U/L (5-34); Albumin 4.6 g/dL (3.4-4.8); Alkaline Phosphatase 86 U/L (40-110); Anion Gap 17 mmol/L (10-20); BUN (Urea Nitrogen) 16 mg/dL (9.8-20.1); Bilirubin, Total 0.4 mg/dL (0.2-1.2); CK (CPK) 150 U/L (29-168); CRP (Inflammatory) 1.24 mg/dL (= or < 0.5); Calc. Creatinine Clearance 0 mL/min (70-130); Carbon Dioxide 25 mmol/L (23-31); Chloride 103 mmol/L (98-107); Estimated GFR-MDRD 52; Globulin 2.6 g/dL (2.4-3.5); Glucose 100 mg/dL (80-115); Hemoglobin 14.3 g/dL (12.0-16.0); Mean Corpuscular HGB CONC 30.8 g/dL (32.0-36.0); Mean Corpuscular Volume 90.9 fL (78.0-98.0); Mean Platelet Volume 9.2 fL (7.4-10.4); Platelet Count 326 thou/uL (130-400); Potassium 5.1 mmol/L (3.5-5.1); Protein, Total 7.2 g/dL (6.0-8.3); Red Blood Cell (RBC) Count 5.11 mill/uL (4.20-5.40); Sodium 140 mmol/L (136-145); White Blood Cell (WBC) Count 8.4 thou/uL (4.8-10.8)
[2020-02-18 14:27] LABS: RBC/HPF 0-3 HPF (0-3); Urine Culture Reflex No No; WBC/HPF 0-3 HPF (0-3)
[2020-02-18 14:28] LABS: Bacteria/HPF Rare-Few HPF (None Seen)
== END 2020-02-18 12:39 | disposition home or self-care (01) ==
LOC: NAV LABSP 12:38
PROVIDERS: ATTEND Family Medicine
DX: R53.1 Weakness (principal); R42 Dizziness and giddiness; R60.0 Localized edema; R06.02 Shortness of breath
CPT/HCPCS: 36415; 80053; 81001; 82550; 83880; 85025; 85652; 86140

== ENCOUNTER 2020-10-12 15:26 | Emergency (ER) | payer OTHER ==
[2020-10-12] MEDS ORDERED: Dexamethasone 4 mg/ml Vial ONE (16:00)
== END 2020-10-12 16:20 | disposition home or self-care (01) ==
LOC: NAV ERS 15:26
DX: J01.90 Acute sinusitis, unspecified (principal); I10 Essential (primary) hypertension; E78.5 Hyperlipidemia, unspecified; F17.210 Nicotine dependence, cigarettes, uncomplicated; Z79.899 Other long term (current) drug therapy
CPT/HCPCS: 96372; 99283; J1100

== ENCOUNTER 2021-03-15 17:23 | Outpatient (CLI) | payer OTHER | END 2021-03-15 17:24 | disposition home or self-care (01) | LOC: NAV RAD 17:23 | PROVIDERS: ATTEND Family Medicine | DX: J18.9 Pneumonia, unspecified organism (principal); R05.9 Cough, unspecified; M25.511 Pain in right shoulder | CPT/HCPCS: 71046 ==

== ENCOUNTER 2021-04-01 08:17 | Outpatient (CLI) | payer OTHER | END 2021-04-01 08:18 | disposition home or self-care (01) | LOC: NAV RAD 08:17 | PROVIDERS: ATTEND Family Medicine | DX: M25.562 Pain in left knee (principal) ==

== ENCOUNTER 2021-04-09 21:00 | Emergency (ER) | payer OTHER ==
[2021-04-10 16:52] LABS: SARS-CoV-2 PCR by NAA Not Detected (NotDetected)
== END 2021-04-09 22:15 | disposition home or self-care (01) ==
LOC: NAV ERS 21:00
DX: M25.562 Pain in left knee (principal); G89.29 Other chronic pain; I10 Essential (primary) hypertension; K21.9 Gastro-esophageal reflux disease without esophagitis; E78.5 Hyperlipidemia, unspecified; E78.00 Pure hypercholesterolemia, unspecified; F17.210 Nicotine dependence, cigarettes, uncomplicated; Z20.822 Contact with and (suspected) exposure to COVID-19; Z79.899 Other long term (current) drug therapy
CPT/HCPCS: 99283; U0003; U0005

== ENCOUNTER 2021-04-26 10:36 | Emergency (ER) | payer OTHER | END 2021-04-26 12:20 | disposition home or self-care (01) | LOC: NAV ERS 10:36 | DX: B82.0 Intestinal helminthiasis, unspecified (principal); I10 Essential (primary) hypertension; K21.9 Gastro-esophageal reflux disease without esophagitis; E78.00 Pure hypercholesterolemia, unspecified; E78.5 Hyperlipidemia, unspecified; F17.210 Nicotine dependence, cigarettes, uncomplicated | CPT/HCPCS: 99282 ==

== ENCOUNTER 2021-05-06 07:54 | Emergency (ER) | payer OTHER ==
[2021-05-06 08:33] LABS: Bilirubin Negative (Negative); Blood, Urine Trace (Negative); Clarity Clear (Clear); Glucose, Urine (Dipstick) Negative (Negative); Ketone, Urine Negative (Negative); Leukocyte Negative (Negative); Nitrite Negative (Negative); Protein, Urine (Dipstick) Negative (Neg-Trace); Urobilinogen 0.2 mg/dL (Less than 2); pH, Urine 6.5 (5.0-9.0)
[2021-05-06 08:38] LABS: Bacteria/HPF None Seen HPF (None Seen); RBC/HPF 0-3 HPF (0-3); Squamous Epithelial 0-3 HPF (0-3); WBC/HPF None Seen HPF (0-3)
[2021-05-06 08:46] LABS: Amphetamine Not Detected (NotDetected); Barbiturates Screen Not Detected (NotDetected); Benzodiazepine Screen Not Detected (NotDetected); Cocaine Metabolite Screen Not Detected (NotDetected); Medtox Control Line Valid? VALID (VALID); Methadone Not Detected (NotDetected); Methamphetamine Not Detected (NotDetected); Opiate Screen Not Detected (NotDetected); Oxycodone Screen Not Detected (NotDetected); Phencyclidine (PCP) Not Detected (NotDetected); THC/Cannabinoid Screen Not Detected (NotDetected); Tricyclic Screen Not Detected (NotDetected)
== END 2021-05-06 09:00 | disposition home or self-care (01) ==
LOC: NAV ERS 07:54
DX: R19.5 Other fecal abnormalities (principal); I10 Essential (primary) hypertension; K21.9 Gastro-esophageal reflux disease without esophagitis; F17.210 Nicotine dependence, cigarettes, uncomplicated; Z79.899 Other long term (current) drug therapy; Z79.82 Long term (current) use of aspirin
CPT/HCPCS: 80306; 81003; 81015; 82274; 99283

== ENCOUNTER 2021-07-24 14:10 | Emergency (ER) | payer OTHER | END 2021-07-24 14:35 | disposition home or self-care (01) | LOC: NAV ERS 14:10 | DX: S50.861A Insect bite (nonvenomous) of right forearm, initial encounter (principal); I10 Essential (primary) hypertension; K21.9 Gastro-esophageal reflux disease without esophagitis; E78.5 Hyperlipidemia, unspecified; F17.210 Nicotine dependence, cigarettes, uncomplicated; Z79.899 Other long term (current) drug therapy; W57.XXXA Bitten or stung by nonvenomous insect and other nonvenomous arthropods, initial encounter | CPT/HCPCS: 99406 ==

== ENCOUNTER 2021-08-05 18:33 | Emergency (ER) | payer OTHER ==
[2021-08-06 20:29] LABS: SARS-CoV-2 PCR by NAA Not Detected (NotDetected)
== END 2021-08-05 19:13 | disposition home or self-care (01) ==
LOC: NAV ERS 18:33
DX: J06.9 Acute upper respiratory infection, unspecified (principal); Z20.822 Contact with and (suspected) exposure to COVID-19
CPT/HCPCS: 87804; 99283; U0003; U0005

== ENCOUNTER 2021-08-07 11:45 | Emergency (ER) | payer OTHER | END 2021-08-07 12:25 | disposition home or self-care (01) | LOC: NAV ERS 11:45 | DX: J30.9 Allergic rhinitis, unspecified (principal); J32.9 Chronic sinusitis, unspecified; B97.89 Other viral agents as the cause of diseases classified elsewhere; I10 Essential (primary) hypertension; E78.5 Hyperlipidemia, unspecified; K21.9 Gastro-esophageal reflux disease without esophagitis; F17.210 Nicotine dependence, cigarettes, uncomplicated; Z79.899 Other long term (current) drug therapy | CPT/HCPCS: 99283 ==

== ENCOUNTER 2022-02-01 17:00 | Emergency (ER) | payer OTHER ==
[2022-02-01] MEDS ORDERED: Sodium Chloride 0.9% 1,000 ML ONE (17:25)
[2022-02-01 17:39] LABS: INR-International Normal Ratio 0.9; Prothrombin Time 12.6 sec (12.0-14.7)
[2022-02-01 17:40] LABS: PTT 28.5 sec (22.9-36.1)
[2022-02-01 17:42] LABS: #Lymphocytes 3.6 thou/uL (1.20-3.40); #Neutrophils 5.4 thou/uL (1.40-6.50); %Basophils 0.8 % (0.0-1.0); %Eosinophils 2.5 % (0.0-10.0); %Lymphocytes 36.3 % (21.0-51.0); %Monocytes 5.5 % (0.0-10.0); %Neutrophils 54.9 % (42.0-75.0); Hemoglobin 13.1 g/dL (12.0-16.0); Manual Diff?? NO; Mean Corpuscular HGB CONC 31.5 g/dL (32.0-36.0); Mean Corpuscular Hemoglobin 28.8 pg (27.0-31.0); Mean Corpuscular Volume 91.5 fL (78.0-98.0); Mean Platelet Volume 8.8 fL (7.4-10.4); Platelet Count 328 thou/uL (130-400); RBC Distribution Width 12.8 % (11.5-14.5); Red Blood Cell (RBC) Count 4.55 mill/uL (4.20-5.40); White Blood Cell (WBC) Count 9.9 thou/uL (4.8-10.8)
[2022-02-01 17:43] LABS: #Basophils 0.1 thou/uL (0.0-0.2); #Eosinphils 0.2 thou/uL (0.0-0.7); #Monocytes 0.5 thou/uL (0.11-0.59)
[2022-02-01 17:50] LABS: ALT (SGPT) 17 U/L (8-55); AST (SGOT) 15 U/L (5-34); Albumin 4.2 g/dL (3.4-4.8); Alcohol Less than 10 mg/dL (Less than 10); Alkaline Phosphatase 82 U/L (40-110); Anion Gap 15 mmol/L (10-20); BUN (Urea Nitrogen) 14 mg/dL (9.8-20.1); Bilirubin, Total 0.2 mg/dL (0.2-1.2); Calc. Creatinine Clearance 0 mL/min (70-130); Calcium 9.4 mg/dL (7.8-10.44); Carbon Dioxide 26 mmol/L (23-31); Chloride 104 mmol/L (98-107); Estimated GFR 74; Globulin 2.8 g/dL (2.4-3.5); Glucose 94 mg/dL (80-115); Salicylate Less than 8.0 mg/dL (15.0-30.0); Sodium 141 mmol/L (136-145)
[2022-02-01 19:09] LABS: Acetaminophen Less than 10.0 mcg/mL (10.0-30.0)
[2022-02-01 19:22] LABS: Bilirubin Negative (Negative); Blood, Urine Trace (Negative); Clarity Clear (Clear); Glucose, Urine (Dipstick) Negative (Negative); Ketone, Urine Negative (Negative); Leukocyte Negative (Negative); Nitrite Negative (Negative); Protein, Urine (Dipstick) Negative (Neg-Trace); Urobilinogen 0.2 mg/dL (Less than 2); pH, Urine 6.5 (5.0-9.0)
[2022-02-01 19:30] LABS: Bacteria/HPF None Seen HPF (None Seen); RBC/HPF 0-3 HPF (0-3); Squamous Epithelial None Seen HPF (0-3); WBC/HPF None Seen HPF (0-3)
[2022-02-01 19:32] LABS: Amphetamine Not Detected (NotDetected); Barbiturates Screen Not Detected (NotDetected); Benzodiazepine Screen Not Detected (NotDetected); Cocaine Metabolite Screen Not Detected (NotDetected); Medtox Control Line Valid? VALID (VALID); Methadone Not Detected (NotDetected); Methamphetamine Not Detected (NotDetected); Opiate Screen Not Detected (NotDetected); Oxycodone Screen Not Detected (NotDetected); Phencyclidine (PCP) Not Detected (NotDetected); THC/Cannabinoid Screen Not Detected (NotDetected); Tricyclic Screen Not Detected (NotDetected)
== END 2022-02-01 19:58 | disposition home or self-care (01) ==
LOC: NAV ERS 17:00
DX: E86.0 Dehydration (principal); I10 Essential (primary) hypertension; E78.5 Hyperlipidemia, unspecified; K21.9 Gastro-esophageal reflux disease without esophagitis; F17.210 Nicotine dependence, cigarettes, uncomplicated; Z79.899 Other long term (current) drug therapy
CPT/HCPCS: 70450; 71045; 80053; 80306; 80307; 81003; 81015; 83880; 84484; 85025; 85610; 85730; 93005; 94760; 96360; 96361; J7050

== ENCOUNTER 2022-02-09 10:15 | Emergency (ER) | payer OTHER | END 2022-02-09 11:10 | disposition home or self-care (01) | LOC: NAV ERS 10:15 | DX: J01.90 Acute sinusitis, unspecified (principal); I10 Essential (primary) hypertension; E78.5 Hyperlipidemia, unspecified; K21.9 Gastro-esophageal reflux disease without esophagitis; Z79.899 Other long term (current) drug therapy | CPT/HCPCS: 99283 ==

== ENCOUNTER 2023-04-08 12:57 | Emergency (ER) | payer MEDICARE | END 2023-04-08 14:00 | disposition home or self-care (01) | LOC: NAV ERS 12:57 | DX: S86.912A Strain of unspecified muscle(s) and tendon(s) at lower leg level, left leg, initial encounter (principal); I10 Essential (primary) hypertension; K21.9 Gastro-esophageal reflux disease without esophagitis; E78.5 Hyperlipidemia, unspecified; Z79.899 Other long term (current) drug therapy; Z79.82 Long term (current) use of aspirin; Z87.891 Personal history of nicotine dependence; X58.XXXA Exposure to other specified factors, initial encounter | CPT/HCPCS: 99283 ==

== ENCOUNTER 2023-07-08 19:52 | Emergency (ER) | payer MEDICARE ==
[2023-07-08 20:53] LABS: Bilirubin Negative (Negative); Blood, Urine Trace (Negative); Clarity Clear (Clear); Glucose, Urine (Dipstick) Negative (Negative); Ketone, Urine Negative (Negative); Leukocyte Negative (Negative); Nitrite Negative (Negative); Protein, Urine (Dipstick) Negative (Neg-Trace); Urobilinogen 0.2 mg/dL (Less than 2); pH, Urine 6.5 (5.0-9.0)
[2023-07-08 20:59] LABS: Bacteria/HPF None Seen HPF (None Seen); CAUTI Indications for Culture Dysuria,urgency,freq; RBC/HPF None Seen HPF (0-3); Squamous Epithelial None Seen HPF (0-3); WBC/HPF None Seen HPF (0-3)
[2023-07-08 21:00] LABS: Urine Culture Reflex No No
[2023-07-08 21:16] LABS: #Basophils 0.1 thou/uL (0.0-0.2); #Eosinphils 0.2 thou/uL (0.0-0.7); #Lymphocytes 2.5 thou/uL (1.20-3.40); #Monocytes 0.4 thou/uL (0.11-0.59); #Neutrophils 4.4 thou/uL (1.40-6.50); %Basophils 0.7 % (0.0-1.0); %Eosinophils 3.1 % (0.0-10.0); %Lymphocytes 32.8 % (21.0-51.0); %Monocytes 5.6 % (0.0-10.0); %Neutrophils 57.8 % (42.0-75.0); Hematocrit 39.9 % (36.0-47.0); Hemoglobin 13.2 g/dL (12.0-16.0); Mean Corpuscular Hemoglobin 29.7 pg (27.0-31.0); Mean Corpuscular Volume 89.9 fl (78.0-98.0); Mean Platelet Volume 8.9 fL (7.4-10.4); Platelet Count 243 10x3/uL (130-400); RBC Distribution Width 12.6 % (11.5-14.5); Red Blood Cell (RBC) Count 4.45 mill/uL (4.20-5.40); White Blood Cell (WBC) Count 7.7 10x3/uL (4.8-10.8)
[2023-07-08 21:36] LABS: ALT (SGPT) 14 U/L (8-55); AST (SGOT) 16 U/L (5-34); Albumin 3.9 g/dL (3.4-4.8); Alkaline Phosphatase 74 U/L (40-110); Anion Gap 11 mmol/L (10-20); BUN (Urea Nitrogen) 16 mg/dL (9.8-20.1); Bilirubin, Total 0.2 mg/dL (0.2-1.2); Calc. Creatinine Clearance 0 mL/min (70-130); Calcium 8.6 mg/dL (7.8-10.44); Carbon Dioxide 25 mmol/L (23-31); Chloride 106 mmol/L (98-107); Estimated GFR 87; Globulin 2.6 g/dL (2.4-3.5); Glucose 102 mg/dL (80-115); Lipase 29 U/L (8-78); Magnesium 2.2 mg/dL (1.6-2.6); Potassium 3.8 mmol/L (3.5-5.1); Protein, Total 6.5 g/dL (5.8-8.1); Sodium 138 mmol/L (136-145)
[2023-07-08] MEDS ORDERED: Gabapentin 100 MG CAP ONE (22:26)
== END 2023-07-08 22:38 | disposition home or self-care (01) ==
LOC: NAV ERS 19:52
DX: G62.9 Polyneuropathy, unspecified (principal); I87.2 Venous insufficiency (chronic) (peripheral); I10 Essential (primary) hypertension; E78.5 Hyperlipidemia, unspecified; K21.9 Gastro-esophageal reflux disease without esophagitis; Z87.891 Personal history of nicotine dependence; Z79.899 Other long term (current) drug therapy; Z79.82 Long term (current) use of aspirin
CPT/HCPCS: 36415; 80053; 81001; 83690; 83735; 84443; 85025; 99283

== ENCOUNTER 2024-06-16 08:30 | Outpatient (CLI) | payer MEDICAID, MEDICARE | END 2024-06-16 08:31 | disposition home or self-care (01) | LOC: NAV RAD 08:30 | PROVIDERS: ATTEND Family Medicine | DX: M54.2 Cervicalgia (principal); M47.812 Spondylosis without myelopathy or radiculopathy, cervical region | CPT/HCPCS: 72040 ==